=== PATIENT | female | born 1975 | race Caucasian/White ===

== ENCOUNTER 2024-08-20 21:05 | Emergency (ER) | payer OTHER ==
[2024-08-20 21:19] VITALS: BMI 28.7
[2024-08-20] MEDS ORDERED: KETOROLAC TROMETHAMINE 30 MG/1 ML VIAL ONE (22:58)
[2024-08-20] MEDS ORDERED: LIDOCAINE 5% TOPICAL PATCH ONE (22:58)
[2024-08-20] MEDS ORDERED: ACETAMINOPHEN 500 MG TABLET (FP) ONE (23:04)
[2024-08-20] MEDS: LIDOCAINE 4% PATCH TP ONE (23:06)
[2024-08-20] MEDS: KETOROLAC TROMETHAMINE 30 MG/1 ML VIAL IM ONE (23:06)
[2024-08-20] MEDS: ACETAMINOPHEN 500 MG TABLET (FP) PO ONE (23:06)
[2024-08-20] MEDS: METHOCARBAMOL 750 MG TAB PO ONE (23:06)
[2024-08-20] MEDS ORDERED: METHOCARBAMOL 500 MG TABLET ONE (23:14)
[2024-08-20] MEDS: LIDOCAINE PATCH REMOVAL MC SCH (23:16)
[2024-08-20] MEDS: METHOCARBAMOL 500 MG TABLET PO ONE (23:16)
[2024-08-21] MEDS: oxyCODONE HCL 5 MG TABLET PO ONE ×3 (00:31→02:59)
[2024-08-21 00:43] LABS: BASO % 0.4 % (0-2.0); EOS % 1.1 % (0-4.5); HEMATOCRIT 40.8 % (32.4-45.2); HEMOGLOBIN 14.2 GM/dL (10.7-15.3); LYMPH % 33.9 % (8-40); MCH 30.5 pg (25.7-33.7); MCHC 34.8 g/dl (32.0-36.0); MEAN CELL VOLUME 87.7 fl (80-96); MEAN PLT VOLUME 8.1 fl (7.5-11.1); MONO % 5.3 % (3.8-10.2); NEUT % 59.3 % (42.8-82.8); PLATELET COUNT 301 10^3/uL (134-434); RBC 4.65 M/mm3 (3.60-5.2); RDW 12.4 % (11.6-15.6); WHITE BLOOD COUNT 9.4 K/mm3 (4.0-10.0)
[2024-08-21 01:10] LABS: CHLORIDE 108 mmol/L (98-107); POTASSIUM 3.6 mmol/L (3.5-5.1); SODIUM 139 mmol/L (136-145)
[2024-08-21 01:12] LABS: CALCIUM 9.2 mg/dL (8.5-10.1)
[2024-08-21 01:13] LABS: ALBUMIN 3.9 g/dl (3.4-5.0); ANION GAP 8 mmol/L (4-13); BLOOD UREA NITROGEN 16.2 mg/dL (7-18); CO2 23 mmol/L (21-32); GLUCOSE,RANDOM 102 mg/dL (74-106)
[2024-08-21 01:16] LABS: CREATININE 0.9 mg/dL (0.55-1.3); SGOT/AST 29 U/L (15-37); SGPT/ALT 78 U/L (13-61)
[2024-08-21 01:17] LABS: BILIRUBIN,TOTAL 0.4 mg/dL (0.2-1)
[2024-08-21 01:18] LABS: TOT PROT 7.6 g/dl (6.4-8.2)
[2024-08-21 01:19] LABS: ALK PHOS 94 U/L (45-117)
[2024-08-21] MEDS ORDERED: ONDANSETRON 4 MG/2 ML VIAL ONE (02:45)
[2024-08-21] MEDS ORDERED: oxyCODONE HCL 5 MG TABLET ONE ×2 (02:45→02:55)
[2024-08-21] MEDS: ONDANSETRON 4 MG/2 ML VIAL IVPUSH ONE (02:53)
[2024-08-21 03:58] VITALS: BP 114/76; PULSE 82; RESP 17; TEMP 98.2
== END 2024-08-21 03:58 | disposition home or self-care (01) ==
LOC: JER 21:05
PROC: 3E033GC Introduction of Other Therapeutic Substance into Peripheral Vein, Percutaneous Approach (ICD-10-PCS; principal; 2024-08-20)
PROC: 3E0233Z Introduction of Anti-inflammatory into Muscle, Percutaneous Approach (ICD-10-PCS; 2024-08-20)
DX: M54.2 Cervicalgia (principal); M79.602 Pain in left arm; R07.2 Precordial pain; G89.29 Other chronic pain; R51.9 Headache, unspecified
CPT/HCPCS: 36415; 70491-TC; 80053; 85025; 85651; 86140; 93005; 93010; 99285-25; Q9967